=== PATIENT | male | born 1965 ===

== ENCOUNTER 2024-11-28 15:36 | Emergency (ER) | payer BC ==
[2024-11-28] MEDS: diphenhydrAMINE 50 MG/ML SDV IVPUSH ONE (15:55)
[2024-11-28] MEDS: methylPREDNISolone Sodium Succinate 125 MG/2 ML SDV IVPUSH ONE (15:57)
[2024-11-28] MEDS: diphenhydrAMINE 50 MG/ML SDV ONE (15:58)
[2024-11-28] MEDS: Famotidine 20 MG/2 ML SDV ONE (15:58)
[2024-11-28] MEDS: methylPREDNISolone Sodium Succinate 125 MG/2 ML SDV ONE (15:58)
[2024-11-28] MEDS: Sodium Chloride 0.9% 1,000 ML IV SCH (16:04)
[2024-11-28] MEDS: Famotidine 20 MG/2 ML SDV IVPUSH ONE (16:04)
== END 2024-11-28 18:15 | disposition home or self-care (01) ==
LOC: DL.ED 15:36
DX: T78.3XXA Angioneurotic edema, initial encounter (principal); Z88.5 Allergy status to narcotic agent; Z91.048 Other nonmedicinal substance allergy status
CPT/HCPCS: 96361; 96374; 96375; 99283; 99284; J1200; J2919; J7030